=== PATIENT | female | born 1935 | race African-American/Black ===

== ENCOUNTER 2020-06-26 11:19 | Outpatient (RCR) | payer MEDICARE, SELFPAY ==
[2020-06-26] MEDS: COVID-19 VACC, MRNA(PFIZER)/PF 30 MCG/0.3 ML SYRINGE IM (09:32)
[2020-07-17] MEDS: COVID-19 VACC, MRNA(PFIZER)/PF 30 MCG/0.3 ML SYRINGE IM (09:10)
== END 2020-06-26 23:59 ==
LOC: IMMUN 11:19
PROVIDERS: Visit Provider Family Medicine
DX: Z23 Encounter for immunization (principal)
CPT/HCPCS: 0001A; 0002A; 91300; J2405